=== PATIENT | male | born 1975 | race Two or more races ===

== ENCOUNTER 2017-11-17 10:13 | Day surgery (SDC) | payer BC ==
[2017-11-11 10:26] VITALS: BMI 24.4
[2017-11-17 11:22] VITALS: O2SAT 100
[2017-11-17] MEDS ORDERED: Propofol 10 mg/ml Inj (20 ML) ONE (12:03)
[2017-11-17] MEDS ORDERED: Midazolam 2 MG/2 ML VIAL ONE (12:03)
[2017-11-17] MEDS ORDERED: Lidocaine Hydrochloride 5 ML INJ ONE (12:06)
[2017-11-17] MEDS ORDERED: Rocuronium 10 mg/ml (5 ml) ONE (12:06)
[2017-11-17] MEDS ORDERED: ceFAZolin 1 gm in NS 1 GM/100 ML BAG IVPB ONE (12:21)
[2017-11-17] MEDS ORDERED: Bupivacaine HCl 0.5% PF (30 ml) Inj ONE (12:21)
[2017-11-17] MEDS ORDERED: ePHEDrine 50 mg/ml Inj ONE (12:57)
--- NOTE | 2017-11-17 13:39 | PCM.SURG1 ---
Surgeon's Initial Post Op Note - Surgeon's Notes Surgeon: Brandon Air Gun Operator: RICARDO Type of Anesthesia: General LMA Anesthesia Administered By: Staff Pre-Operative Diagnosis: Right testicular tumor/renal tumor Operative Findings: Right testicular mass Post-Operative Diagnosis: as pre op Operation Performed: Right ingunal oorchiectomy Specimen/Specimens Removed: Right testicle Estimated Blood Loss: EBL {In ML}: 0 Blood Products Given: N/A Drains Used: No Drains Post-Op Condition: Good Date of Surgery/Procedure: 11/17/17 Time of Surgery/Procedure: 13:39
[2017-11-17] MEDS: HYDROmorphone 0.5 mg/0.5 ml ISec IVP PRN ×3 (13:55→14:43)
[2017-11-17] MEDS ORDERED: Lactated Ringer's 1,000 ML IV ONE (14:50)
[2017-11-17 16:21] VITALS: RESP 16
[2017-11-17 16:55] VITALS: BP 115/77; PULSE 57; TEMP 97.6
--- NOTE | 2017-11-18 01:46 | OP ---
PROCEDURE DATE: 11/17/2017 PREOPERATIVE DIAGNOSES: Right testicular tumor, right renal tumor. POSTOPERATIVE DIAGNOSES: Right testicular tumor, right renal tumor. PROCEDURE: Right inguinal orchiectomy. FINDINGS: An indurated mass in the right testicle consistent with findings on ultrasound and CAT scan. SURGEON: Jack Taylor MD DESCRIPTION OF PROCEDURE: Prior to the procedure, detailed informed consent was obtained from the patient. He is aware of the limitation of this procedure, he is aware that he has another tumor in his right kidney and this may either be a synchronous nonrelated tumor, a metastasis from the testicle to the kidney, or a metastasis from the kidney to the testicle. The patient is aware that this procedure alone will not be curative. He is also aware of all risks and complications of the procedure including, but not limited to, bleeding, pain, discomfort, infertility and hernia. He agreed to accept the risks and complications, was brought into the room and was draped and prepped in the usual manner. A retropubic incision was made just above the internal ring, and the incision was carried down to the subcutaneous tissues. The fascia over the cord was incised and the testicle was pushed upwards. It was delivered into the incision and the gubernaculum was dissected free from the base of the testicle. The cord was then identified, it was and tied with 3 ties of 2-0 Dexon suture. A clamp was placed on the opposite end of the cord (the testicular side) and the Bovie was used to separate the cord between the two clamps. Three suture ligatures were placed on the amputated cord and it was placed back into the retroperitoneum. The patient tolerated this procedure very well. The incision was then closed by closing the fascia over the cord with 2-0 Dexon suture and then closing the superficial fascia also with 2-0 Dexon. The skin was closed with skin evangelina. The incision was then infiltrated with 0.5% Marcaine for postoperative anesthesia. The patient was sent to the recovery room in good condition. He was given a prescription for Percocet and Keflex, told to follow up in our office in approximately 2 weeks for review of the pathology and removal of the evangelina. Jack Taylor MD [facility] # [phone]
== END 2017-11-17 16:52 | disposition home or self-care (01) ==
LOC: C.SDS 10:13
PROVIDERS: ATTEND Urology
DX: C62.91 Malignant neoplasm of right testis, unspecified whether descended or undescended (principal); D49.511 Neoplasm of unspecified behavior of right kidney
CPT/HCPCS: 54530; 88309; J1170; J1885; J2250; J2405; J2704; J2765; J3010; J7120

== ENCOUNTER 2017-12-10 09:09 | Day surgery (SDC) | payer BC ==
[2017-11-11 10:26] VITALS: BMI 24.4
[2017-12-10] MEDS ORDERED: Midazolam 2 MG/2 ML VIAL ONE (10:54)
[2017-12-10] MEDS ORDERED: Absorbable Gelatin Sponge Size 12-7 ONE (11:07)
--- NOTE | 2017-12-10 11:15 | CP.SDSHP ---
Same Day Surgery H & P - History Proposed Procedure: CT guided right renal biopsy Pre-Op Diagnosis: Right renal mass - Allergies Allergies: Allergies No Known Allergies Allergy (Verified 11/11/17 10:26) - Physical Exam Vital Signs: Vital Signs 12/10/17 09:38 Temperature 97.5 F L Pulse Rate 58 L Respiratory 20 Rate Blood Pressure 123/76 O2 Sat by Pulse 98 Oximetry Mental Status: Alert & Oriented x3 Neuro: WNL Heart: WNL - Impression Impression: Pt with right renal mass. Plan right renal mass biopsy. Pt. 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
--- NOTE | 2017-12-10 11:17 | PCM.SURG1 ---
Surgeon's Initial Post Op Note - Surgeon's Notes Surgeon: Trav Sy MD Senior Quality Analyst: NONE Type of Anesthesia: IV Sedation Pre-Operative Diagnosis: Renal renal mass Operative Findings: CT showed large right renal mass < 7 cm. Post-Operative Diagnosis: Right renal mass Operation Performed: CT guided core biopsy right renal mass. 3 18-gauge core specimen removed. BIopsy tract embolized with gelfoam. Specimen/Specimens Removed: 18-g core x 3 Estimated Blood Loss: EBL {In ML}: 1 Blood Products Given: N/A Drains Used: No Drains Post-Op Condition: Fair Date of Surgery/Procedure: 12/10/17 Time of Surgery/Procedure: 11:15
[2017-12-10 11:38] VITALS: RESP 18; TEMP 97; O2SAT 100
[2017-12-10 12:55] VITALS: BP 105/78; PULSE 58
== END 2017-12-10 12:58 | disposition home or self-care (01) ==
LOC: C.SPRAD 09:09
PROVIDERS: ATTEND Radiology Vascular & Interventional Radiology
DX: C64.1 Malignant neoplasm of right kidney, except renal pelvis (principal)
CPT/HCPCS: 50200; 77012; 88305; J2250; J3010